=== PATIENT | female | born 1985 | race Caucasian/White ===

== ENCOUNTER → 2023-01-06 14:30 | Outpatient (CLI) | payer OTHER, SELFPAY ==
--- NOTE | ~2023-01-06 | MR_ITS ---
EXAMINATION: MR brain/brain stem wo/w con DATE: 01/06/2023 15:31 INDICATION: Paresthesias of skin. TECHNIQUE: Magnetic resonance imaging (MRI) of the brain and brainstem was performed without and with 14 mL MultiHance intravenous contrast. COMPARISON: None. FINDINGS: There is no intracranial hemorrhage, acute infarction, or abnormal intracranial mass lesion . The ventricles are normal in size. There is mild mucosal thickening in the paranasal sinuses. The o rbits are normal. The mastoid air cells are normal. IMPRESSION: 1. Normal brain. Reviewed, dictated and finalized at location A. IMPRESSION: 1. Normal brain.
== END ==
PROVIDERS: PCP Family Medicine; Visit Provider Family Medicine
DX: G43.109 Migraine with aura, not intractable, without status migrainosus (principal); R20.2 Paresthesia of skin; R42 Dizziness and giddiness
CPT/HCPCS: 70553; A9577

== ENCOUNTER 2023-01-10 11:39 | Outpatient (CLI) | payer OTHER, SELFPAY ==
[2023-01-10 22:22] LABS: Folic Acid 9.4 ng/mL (2.76->20)
== END 2023-01-10 11:40 | disposition home or self-care (01) ==
LOC: ANHGOSHLAB 11:41
PROVIDERS: PCP Family Medicine; Visit Provider Family Medicine
DX: G62.9 Polyneuropathy, unspecified (principal)
CPT/HCPCS: 36415; 82607; 82746

== ENCOUNTER → 2023-01-20 12:52 | Outpatient (CLI) | payer OTHER, SELFPAY ==
--- NOTE | ~2023-01-20 | MR_ITS ---
EXAMINATION: MR cervical spine wo/w con DATE: 01/20/2023 14:26 INDICATION: Paresthesias of skin. TECHNIQUE: Magnetic resonance imaging (MRI) of the cervical spine was performed without and with 14 m L MultiHance intravenous contrast. COMPARISON: None FINDINGS: There is mild kyphosis of cervical spine. Vertebral body heights are normal. There is mildl y decreased disc height at C5-C6. The spinal cord signal intensity is normal. The following disc leve ls are specifically discussed: C2-C3: The disc does not extend beyond the endplate margin. There is no uncovertebral joint osteoarth ritis. There is mild right facet joint osteoarthritis. There is no neural foraminal stenosis. There i s no central canal stenosis. C3-C4: The disc does not extend beyond the endplate margin. There is no uncovertebral joint osteoarth ritis. There is mild bilateral facet joint osteoarthritis. There is no neural foraminal stenosis. The re is no central canal stenosis. C4-C5: The disc does not extend beyond the endplate margin. There is no uncovertebral joint osteoarth ritis. There is mild bilateral facet joint osteoarthritis. There is no neural foraminal stenosis. The re is no central canal stenosis. C5-C6: The disc is bulging. There is mild bilateral uncovertebral joint osteoarthritis. There is mild bilateral facet joint osteoarthritis. There is no neural foraminal stenosis. There is mild central c anal stenosis. C6-C7: The disc does not extend beyond the endplate margin. There is no uncovertebral joint osteoarth ritis. There is mild left facet joint osteoarthritis. There is no neural foraminal stenosis. There is no central canal stenosis. C7-T1: The disc does not extend beyond the endplate margin. There is no uncovertebral joint osteoarth ritis. There is mild bilateral facet joint osteoarthritis. There is no neural foraminal stenosis. The re is no central canal stenosis. IMPRESSION: 1. Normal spinal cord. 2. Mild cervical spondylosis. Reviewed, dictated and finalized at location A.
--- NOTE | ~2023-01-20 | MR_ITS ---
EXAMINATION: MR thoracic spine wo/w con DATE: 01/20/2023 14:26 INDICATION: Paresthesias of skin. Neck pain. Low back pain. TECHNIQUE: Magnetic resonance imaging (MRI) of the thoracic spine was performed without and with 14 m L MultiHance intravenous contrast. COMPARISON: None FINDINGS: Bone alignment is normal. There is mild chronic anterior wedging of T6 vertebral body. Ther e is mildly decreased disc height at T6-T7, T7-T8, and T8-T9. The discs do not extend beyond the endp late margins. There is multilevel mild facet joint osteoarthritis. There is no neural foraminal steno sis or central canal stenosis. The spinal cord signal intensity is normal. The conus medullaris is at T12-L1. IMPRESSION: 1. Normal spinal cord. 2. Mild thoracic spondylosis. Reviewed, dictated and finalized at location A.
== END ==
PROVIDERS: PCP Family Medicine; Visit Provider Family Medicine
DX: R20.2 Paresthesia of skin (principal); M47.894 Other spondylosis, thoracic region; M47.892 Other spondylosis, cervical region
CPT/HCPCS: 72156; 72157; A9577

== ENCOUNTER 2023-02-22 08:45 | Outpatient (CLI) | payer OTHER, SELFPAY ==
--- NOTE | 2023-02-22 11:15 | NEURO_ITS ---
Impression: # Complains of numbness in upper and lower extremities. # Normal Nerve Conduction Study including motor and sensory nerves at this stage. # Normal needle/EMG exam. # Clinical correlation recommended. Nerve Conduction Studies Anti Sensory Summary Table Stim Site NR Peak (ms) P-T Amp (?V) Site1 Site2 Delta-P (ms) Dist (cm) Nicholas (m/s) Left Sup Fibular Anti Sensory (Ant Lat Mall) 14 cm 3.3 9.6 14 cm Ant Lat Mall 3.3 16.0 48 Right Sup Fibular Anti Sensory (Ant Lat Mall) 14 cm 3.3 9.6 14 cm Ant Lat Mall 3.3 16.0 48 Left Sural Anti Sensory (Lat Mall) Calf 3.3 9.8 Calf Lat Mall 3.3 16.0 48 Right Sural Anti Sensory (Lat Mall) Calf 3.6 8.2 Calf Lat Mall 3.6 16.0 44 Motor Summary Table Stim Site NR Onset (ms) O-P Amp (mV) Site1 Site2 Delta-0 (ms) Dist (cm) Nicholas (m/s) Left Peroneal Motor (Vastus Med) Ankle 3.9 2.0 Popit Ankle 8.0 42.0 53 Popit 11.9 1.6 Right Peroneal Motor (Vastus Med) Ankle 3.8 7.8 Popit Ankle 7.5 39.0 52 Popit 11.3 6.4 Left Tibial Motor (Abd Kelley Brev) Ankle 3.9 3.0 Knee Ankle 8.8 43.0 49 Knee 12.7 3.8 Right Tibial Motor (Abd Kelley Brev) Ankle 3.9 5.3 Knee Ankle 8.6 42.0 49 Knee 12.5 2.5 F Wave Studies NR F-Lat (ms) L-R F-Lat (ms) Left Peroneal (Mrkrs) (EDB) 46.84 0.12 Right Peroneal (Mrkrs) (EDB) 46.72 0.12 Left Tibial (Mrkrs) (Abd Hallucis) 47.28 0.38 Right Tibial (Mrkrs) (Abd Hallucis) 47.66 0.38 EMG Side Muscle Nerve Root Ins Act Fibs Amp Dur Recrt Comment Right AntTibialis Dp Br Fibular L4-5 Nml Nml Nml Nml Nml Right Gastroc Tibial S1-2 Nml Nml Nml Nml Nml Right Fibularis Long Sup Br Fibular L5-S1 Nml Nml Nml Nml Nml Right Flex Dig Long Tibial L5-S2 Nml Nml Nml Nml Nml Right Ext Dig Brev Dp Br Fibular L5, S1 Nml Nml Nml Nml Nml Left AntTibialis Dp Br Fibular L4-5 Nml Nml Nml Nml Nml Left Gastroc Tibial S1-2 Nml Nml Nml Nml Nml Left Fibularis Long Sup Br Fibular L5-S1 Nml Nml Nml Nml Nml Left Flex Dig Long Tibial L5-S2 Nml Nml Nml Nml Nml Left Ext Dig Brev Dp Br Fibular L5, S1 Nml Nml Nml Nml Nml Right QuadratusFem QuadFemoris L4-5, S1 Nml Nml Nml Nml Nml Left QuadratusFem QuadFemoris L4-5, S1 Nml Nml Nml Nml Nml MTDD
== END 2023-02-22 08:46 | disposition home or self-care (01) ==
PROVIDERS: PCP Family Medicine; Visit Provider Family Medicine
DX: R20.2 Paresthesia of skin (principal)
CPT/HCPCS: 95886; 95910